=== PATIENT | male | born 2000 | race African-American/Black ===

== ENCOUNTER 2023-04-25 21:46 | Emergency (ER) | payer OTHER, SELFPAY ==
--- OUTSIDE RECORDS SUMMARY | 2023-04-25 21:56 | XMS REPORT | Continuity of Care Document ---
Author Name Unknown Address [address] [place] [address] [facility] thconnect Address 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 Role Phone Anel Moreno PA-C Primary Care Physician + GHISLAINE LEAL Attending Clinician Unavailable Ghislaine Nazario Attending Clinician [phone] Doctor Unassigned, Mackey Attending Clinician U juanjose Valdes PT, Trisha De La Torre Attending Clinician Unavail able Monse Fleming MD Attending Clinician [phone] MONSE FLEMING Attending Clinician UnavailSHAYY Finch Attending Clinician Unavail able Shayy Salmeron Attending Clinician + [phone] Anel Moreno PA-C Attending Clinician [phone] AMY MOSER Attending Clinician Unavailable Amy French Attending Clinician [phone] ANEL MORENO Attending Clinician Unavailab Anel Copeland Attending Clinician [phone] CARINE TRONCOSO Attending Clinician Unavailable Carine Troncoso MD Attending Clinician LISET GERARDO Attending Clinician Unavailable ITZ GOMEZ Attending Clinician UnavailCARINE Skinner Admitting Clinician Unavailable Payers Payer Name Policy Type Policy Number Effective Date Expirati on Date Source [facility] [id number] 2019 00:00:00 [facility] [id number] 2021 00:00:00 COMMERCIAL NON-CONTRACT GENERIC PENDING 2021 00:00:00 [employer] MEDICAID [id number] 2019 00:00:00 [facility] [id number] 2017 00:00:00 Problems Condition Name Condition Details Condition Category Status Onset Date Resolution Date Last Treatment Date Treating Clinician Comments Source Closed fracture dislocatio n of left ankle with routine healing Closed fracture dislocatio n of left ankle with routine healing Disease Active - 00:00: 00 [facility] Weakness of left lower extremity Weakness of left lower extremity Disease Active - 00:00: 00 [facility] Acute left ankle pain Acute left ankle pain Disease Active 3- 00:00: 00 [facility] Weakness of left lower extremity Weakness of left lower extremity Disease Active - 00:00: 00 [facility] No known active problems No known active problems Disease [facility] Allergies, Adverse Reactions, Alerts Allergy Name Allergy Type Status Severity Reaction(s) Onset Date Inactive Date Treating Clinician Comments Source NO KNOWN ALLERGIE S Drug Class Active [facility] Social History Social Habit Start Date Stop Date Quantity Comments Source Exposure to SARS-CoV-2 (event) 2022-09-09 00:00:00 2022-09-19 07:45:00 Not sure [facility] Alcohol intake 2022-09-19 00:00:00 2022-09-19 00:00:00 Lifetime non-drinker (finding) [facility] Tobacco use and exposure 2019-02-24 00:00:00 2019-02-24 00:00:00 Smokeless tobacco non-user [facility] Sex Assigned At 2002 00:00:00 2000 00:00:00 [facility] Smoking Status Start Date Stop Date Source Never smoked tobacco [facility] Medications Ordered Medication Name Filled Medication Name Start Date Stop Date Current Medication? Ordering Clinician Indication Dosage Frequency Signature (SIG) Comments Components Source cefdinir 250 mg/5 mL suspension 2020-05 00:00: 00 Yes [id number] Give 12 ml po QD for 10 days [facility] prednisoLON E 15 mg/5 mL solution 2020-05 00:00: 00 Yes [id number] Give 5 ml po BID for 5 days [facility] cefdinir 250 mg/5 mL suspension 2020-05 00:00: 00 Yes [id number] Give 12 ml po QD for 10 days [facility] prednisoLON E 15 mg/5 mL solution 2020-05 00:00: 00 Yes [id number] Give 5 ml po BID for 5 days [facility] cefdinir 250 mg/5 mL suspension 2020-05 00:00: 00 Yes [id number] Give 12 ml po QD for 10 days [facility] prednisoLON E 15 mg/5 mL solution 2020-05 00:00: 00 Yes [id number] Give 5 ml po BID for 5 days [facility] cefdinir 250 mg/5 mL suspension 2020-05 00:00: 00 Yes [id number] Give 12 ml po QD for 10 days [facility] prednisoLON E 15 mg/5 mL solution 2020-05 00:00: 00 Yes [id number] Give 5 ml po BID for 5 days [facility] cefdinir 250 mg/5 mL suspension 2020-05 00:00: 00 Yes [id number] Give 12 ml po QD for 10 days [facility] prednisoLON E 15 mg/5 mL solution 2020-05 00:00: 00 Yes [id number] Give 5 ml po BID for 5 days [facility] cefdinir 250 mg/5 mL suspension 2020-05 00:00: 09-19 00:00 :00 No [id number] Give 12 ml po QD for 10 days [facility] prednisoLON E 15 mg/5 mL solution 2020-05 00:00: 00 09-19 00:00 :00 No [id number] Give 5 ml po BID for 5 days [facility] cefdinir 250 mg/5 mL suspension 2020-05 00:00: 00 09-19 00:00 :00 No [id number] Give 12 ml po QD for 10 days [facility] prednisoLON E 15 mg/5 mL solution 2020-05 00:00: 00 09-19 00:00 :00 No [id number] Give 5 ml po BID for 5 days [facility] mometasone 50 mcg/actuati on nasal spray 2020-05 00:00: 00 Yes [id number] INSTILL 2 SPRAYS IN EACH NOSTRIL EVERY MORNING AND EVERY EVENING [facility] mometasone 50 mcg/actuati on nasal spray 2020-05 00:00: 00 Yes [id number] INSTILL 2 SPRAYS IN EACH NOSTRIL EVERY MORNING AND EVERY EVENING [facility] mometasone 50 mcg/actuati on nasal spray 2020-05 00:00: 00 Yes [id number] INSTILL 2 SPRAYS IN EACH NOSTRIL EVERY MORNING AND EVERY EVENING [facility] mometasone 50 mcg/actuati on nasal spray 2020-05 00:00: 00 Yes [id number] INSTILL 2 SPRAYS IN EACH NOSTRIL EVERY MORNING AND EVERY EVENING [facility] mometasone 50 mcg/actuati on nasal spray 2020-05 00:00: 00 Yes [id number] INSTILL 2 SPRAYS IN EACH NOSTRIL EVERY MORNING AND EVERY EVENING [facility] mometasone 50 mcg/actuati on nasal spray 2020-05 00:00: 00 09-19 00:00 :00 No [id number] INSTILL 2 SPRAYS IN EACH NOSTRIL EVERY MORNING AND EVERY EVENING [facility] mometasone 50 mcg/actuati on nasal spray 2020-05 00:00: 00 09-19 00:00 :00 No [id number] INSTILL 2 SPRAYS IN EACH NOSTRIL EVERY MORNING AND EVERY EVENING [facility]/5 mL solution 01-30 00:00: 00 Yes [id number] Take 5 ml to 10 ml po qhs [facility] hydrOXYzine 10 mg/5 mL solution 01-30 00:00: 00 Yes [id number] Take 5 ml to 10 ml po qhs [facility] hydrOXYzine 10 mg/5 mL solution 01-30 00:00: 00 Yes [id number] Take 5 ml to 10 ml po qhs [facility] 10 mg/5 mL solution 01-30 00:00: 00 Yes [id number] Take 5 ml to 10 ml po qhs [facility] hydrOXYzine 10 mg/5 mL solution 01-30 00:00: 00 Yes [id number] Take 5 ml to 10 ml po qhs [facility] hydrOXYzine 10 mg/5 mL solution 01-30 00:00: 00 09-19 00:00 :00 No [id number] Take 5 ml to 10 ml po qhs [facility] 10 mg/5 mL solution 01-30 00:00: 00 09-19 00:00 :00 No [id number] Take 5 ml to 10 ml po qhs [facility] Vital Signs Vital Name Observation Time Observation Value Comments S ource Systolic blood pressure 2022-09-19 13:29:00 128 mm[Hg] [facility] Diastolic blood pressure 2022-09-19 13:29:00 78 mm[Hg] [place] [facility] Heart rate 2022-09-19 13:29:00 68 /min [facility] Body height 2022-09-19 13:21:00 177.8 cm [facility] Body weight 2022-09-19 13:21:00 87.771 kg [facility] BMI 2022-09-19 13:21:00 27.76 kg/m2 [facility] Oxygen saturation in Arterial blood by Pulse oximetry 2022-09-19 13:21:00 98 /min [facility] Procedures Procedure Date / Time Performed Performing Clinician Source CONSENT/REFUSAL FOR DIAGNOSIS AND TREATMENT 2022-09-19 12:46:11 Doctor Unassigned, Mackey [facility] / CERTIFICATE 2021-07-14 06:01:00 Doctor Unassigned, Mackey [facility] Encounters Start Date/Time End Date/Time Encounter Type Admission Type Attending Clinicians Care Facility Care Department Encounter ID Source 2021-03-18 12:00:54 Emergency [facility] [id number] [facility] 2021-03-17 20:09:05 Emergency [facility] [id number] [facility] 2022-09-19 08:00:00 2022-09-19 08:44:12 Outpatient R GHISLAINE LEAL [facility] [id number] [facility] 2022-09-19 08:00:00 2022-09-19 08:44:12 Office Visit Ghislaine Leal [facility] 1.840.114 350.1.13.10 4.2.7.2.686 [id number] [facility] 2022-09-19 00:00:00 2022-09-19 00:00:00 Orders Only Doctor Unassigned, Mackey [facility] 1.840.114 350.1.13.10 4.2.7.2.686 [id number] [facility] 2021-07-19 14:30:00 2021-07-19 15:28:39 Ancillary Visit Trisha Valdes [facility] 1..840.114 350.1.13.10 4.2.7.2.686 [id number] [facility] 2021-07-19 14:30:00 2021-07-19 15:28:39 Outpatient R MONSE FLEMING [facility] [id number] [facility] 2021-07-14 00:00:00 2021-07-14 00:00:00 Orders Only Doctor Unassigned, Mackey [facility] 1.84.114 350.1.13.10 4.2.7.2.686 [id number] [facility] 2021-06-01 00:00:00 2021-06-01 00:00:00 Telephone Monse Fleming [facility] 1..114 350.1.13.10 4.2.7.2.686 [id number] [facility] 2021-05-23 14:20:00 2021-05-23 14:40:31 Outpatient R [facility] [id number] [facility] 2021-05-23 14:20:00 2021-05-23 14:40:31 Office Visit [facility] 1.2114 350.1.13.10 4.2.7.2.686 [id number] [facility] 2021-05-23 14:20:00 2021-05-23 14:40:31 Outpatient R [facility] [id number] [facility] 2021-05-23 14:20:00 2021-05-23 14:40:31 Outpatient R [facility] [id number] [facility] 2021-05-23 00:00:00 2021-05-23 00:00:00 Letter (Out) [facility] 1.84.114 350.1.13.10 4.2.7.2.686 [id number] [facility] 2021-05-17 00:00:00 2021-05-17 00:00:00 Telephone Anel Moreno [facility] 1.2.840.114 350.1.13.10 4.2.7.2.686 [id number] [facility] 2021-04-28 08:15:00 2021-04-28 23:59:00 Outpatient Janie MOSER [facility] [id number] [facility] 2021-04-28 08:15:00 2021-04-28 23:59:00 Hospital Encounter [facility] 1.2.840.114 350.1.13.10 4.2.7.2.686 [id number] [facility] 2021-04-28 08:00:00 2021-04-28 09:18:03 Outpatient AMY SUMMERS [facility] [id number] [facility] 2021-04-28 07:46:08 2021-04-28 09:18:03 [facility] 1.2.840.114 350.1.13.10 4.2.7.2.686 [id number] [facility] 2021-04-28 08:00:00 2021-04-28 08:00:00 Outpatient AMY SUMMERS [facility] [id number] [facility] 2021-04-28 08:00:00 2021-04-28 08:00:00 Outpatient Janie MOSER [facility] [id number] [facility] 2021-04-28 08:00:00 2021-04-28 08:00:00 Outpatient Janie MOSER [facility] [id number] [facility] 2021-04-28 00:00:00 2021-04-28 00:00:00 Telephone T[facility] 1.2840.114 350.1.13.10 4.2.7.2.686 [id number] [facility] 2021-04-28 00:00:00 2021-04-28 00:00:00 Telephone Amy Moser [facility] 1.2840.114 350.1.13.10 4.2.7.2.686 [id number] [facility] 2021-04-21 10:10:00 2021-04-21 10:31:00 Outpatient R ANEL MORENO [facility] [id number] [facility] 2021-04-21 10:03:24 2021-04-21 10:31:00 Office Visit Anel Moreno [facility] 1.2.840.114 350.1.13.10 4.2.7.2.686 [id number] [facility] 2021-04-21 00:00:00 2021-04-21 00:00:00 Letter (Out) Anel Moreno [facility] 1.2.840.114 350.1.13.10 4.2.7.2.686 [id number] [facility] 2021-04-20 00:00:00 2021-04-20 00:00:00 Telephone Anel Moreno [facility] 1.2.840.114 350.1.13.10 4.2.7.2.686 [id number] [facility] 2021-04-18 00:00:00 2021-04-18 00:00:00 Letter (Out) Anel Moreno [facility] 1.2.840.114 350.1.13.10 4.2.7.2.686 [id number] [facility] 2021-04-17 08:10:00 2021-04-17 08:27:50 Outpatient R ANEL MORENO [facility] [id number] [facility] 2021-04-17 07:58:31 2021-04-17 08:27:50 Office Visit Anel Moreno [facility] 1.2.840.114 350.1.13.10 4.2.7.2.686 [id number] [facility] 2021-04-17 08:10:00 2021-04-17 08:10:00 Outpatient R ANEL MORENO [facility] [id number] [facility] 2021-04-17 00:00:00 2021-04-17 00:00:00 Letter (Out) Anel Moreno [facility] 1.2.840.114 350.1.13.10 4.2.7.2.686 [id number] [facility] 2021-04-07 00:00:00 2021-04-07 00:00:00 Telephone Anel Wei [facility] 1.2.840.114 350.1.13.10 4.2.7.2.686 [id number] [facility] 2021-04-06 00:00:00 2021-04-06 00:00:00 Telephone Anel Moreno [facility] 1.2.840.114 350.1.13.10 4.2.7.2.686 [id number] [facility] 2021-04-05 00:00:00 2021-04-05 00:00:00 Telephone Anel Moreno [facility] 1.2.840.114 350.1.13.10 4.2.7.2.686 [id number] [facility] 2021-04-03 14:35:00 2021-04-03 23:59:00 [facility] 1.284.114 350.1.13.10 4.2.7.2.686 [id number] [facility] 2021-04-03 14:45:00 2021-04-03 15:53:36 Outpatient R MONSE FLEMING [facility] [id number] [facility] 2021-04-03 14:45:00 2021-04-03 15:53:36 Outpatient R MONSE FLEMING [facility] [id number] [facility] 2021-04-03 14:24:47 2021-04-03 15:53:36 Office Visit Monse Fleming [facility] 1.284.114 350.1.13.10 4.2.7.2.686 [id number] [facility] 2021-03-31 00:00:00 2021-03-31 00:00:[address] [facility] 1.284.114 350.1.13.10 4.2.7.2.686 [id number] [facility] 2021-03-31 00:00:00 2021-03-31 00:00:00 Telephone Anel Moreno [facility] 1.2.114 350.1.13.10 4.2.7.2.686 [id number] [facility] 2021-03-28 00:00:00 2021-03-28 00:00:00 Telephone Anel Moreno [facility] 1.2840.114 350.1.13.10 4.2.7.2.686 [id number] [facility] 2021-03-27 15:40:00 2021-03-27 23:59:00 Outpatient R AMY MOSER [facility] [id number] [facility] 2021-03-27 15:40:00 2021-03-27 23:59:00 Hospital Encounter Amy Moser [facility] 1.2.840.114 350.1.13.10 4.2.7.2.686 [id number] [facility] 2021-03-27 16:00:00 2021-03-27 16:32:40 Outpatient R LONNIE MONSE [facility] [id number] [facility] 2021-03-27 16:00:00 2021-03-27 16:00:00 Outpatient R LONNIE MONSE [facility] [id number] [facility] 2021-03-27 16:00:00 2021-03-27 16:00:00 Outpatient R MONSE FLEMING [facility] [id number] [facility] 2021-03-27 15:32:08 2021-03-27 15:47:08 Office Visit Amy Moser [facility] 1.2.840.114 350.1.13.10 4.2.7.2.686 [id number] [facility] 2021-03-27 00:00:00 2021-03-27 00:00:00 Letter (Out) Monse Fleming Sigrid [facility] 1.2.840.114 350.1.13.10 4.2.7.2.686 [id number] [facility] 2021-03-22 15:30:00 2021-03-22 15:30:00 Outpatient R MONSE FLEMING [facility] [id number] [facility] 2021-03-20 15:33:20 2021-03-20 23:59:00 Outpatient R AMY MOSER [facility] [id number] [facility] 2021-03-20 15:33:20 2021-03-20 23:59:00 Hospital Encounter Amy Moser [facility] 1.2.840.114 350.1.13.10 4.2.7.2.686 [id number] [facility] 2021-03-20 15:15:00 2021-03-20 16:33:58 Outpatient R MONSE FLEMING [facility] [id number] [facility] 2021-03-20 15:16:59 2021-03-20 15:31:59 Office Visit Monse Fleming [facility] 1..840.114 350.1.13.10 4.2.7.2.686 [id number] [facility] 2021-03-20 15:15:00 2021-03-20 15:15:00 Outpatient R MONSE FLEMING [facility] [id number] [facility] 2021-03-20 00:00:00 2021-03-20 00:00:00 Telephone Monse Fleming [facility] 1..840.114 350.1.13.10 4.2.7.2.686 [id number] [facility] 2021-03-17 20:50:00 2021-03-17 23:25:00 Emergency X KARYNA CARINE [facility] [id number] [facility] 2021-03-17 20:50:00 2021-03-17 23:25:00 Emergency Karyna Ryancourtney Altam[facility]ano [facility] 1.840.114 350.1.13.10 4.2.7.2.686 [id number] [facility] 2021-03-17 20:50:00 2021-03-17 23:25:00 Emergency X CARINE TRONCOSO [facility] [id number] [facility] 2021-03-17 00:00:00 2021-03-17 00:00:00 Orders Only Doctor Unassigned, Mackey [facility] 1.2.840.114 350.1.13.10 4.2.7.2.686 [id number] [facility] 2021-03-01 15:40:00 2021-03-01 15:40:00 Outpatient R SHAYY WU [facility] [id number] [facility] 2021-03-01 14:30:00 2021-03-01 14:43:20 Outpatient R ANEL MORENO [facility] [id number] [facility] 2021-03-01 14:25:46 2021-03-01 14:43:20 [facility] 1.20.114 350.1.13.10 4.2.7.2.686 [id number] [facility] 2021-03-01 14:30:00 2021-03-01 14:30:00 Outpatient R ANEL MORENO [facility] [id number] [facility] 2021-03-01 00:00:00 2021-03-01 00:00:00 Telephone [facility] 1.20.114 350.1.13.10 4.2.7.2.686 [id number] [facility] 2021-03-01 00:00:00 2021-03-01 00:00:00 Letter (Out) [facility] 1.2840.114 350.1.13.10 4.2.7.2.686 [id number] [facility] 2021-01-30 07:31:31 2021-01-30 08:40:02 Office Visit [facility] 1.2.840.114 350.1.13.10 4.2.7.2.686 [id number] [facility] 2021-01-30 07:30:00 2021-01-30 08:40:02 Outpatient ANEL DAVISON [facility] [id number] [facility] 2021-01-30 07:30:00 2021-01-30 07:30:00 Outpatient ANEL DAVISON [facility] [id number] [facility] 2021-01-09 07:50:00 2021-01-09 07:50:00 Outpatient ANEL DAVISON [facility] [id number] [facility] 2021-01-09 07:50:00 2021-01-09 07:50:00 Outpatient ANEL DAVISON [facility] [id number] [facility] 2021-01-02 07:50:00 2021-01-02 08:15:37 Outpatient ANEL DAVISON [facility] [id number] [facility] 2021-01-02 07:50:00 2021-01-02 08:15:37 Outpatient ANEL DAVISON [facility] [id number] [facility] 2021-01-02 07:50:00 2021-01-02 07:50:00 Outpatient ANEL DAVISON [facility] [id number] [facility] 2020-12-30 12:50:00 2020-12-30 12:50:00 Outpatient ANEL DAVISON [facility] [id number] [facility] 2020-12-16 07:50:00 2020-12-16 07:50:00 Outpatient ANEL DAVISON [facility] [id number] [facility] 2020-08-26 15:10:00 2020-08-26 15:43:24 Outpatient ANEL DAVISON [facility] [id number] [facility] 2020-08-26 15:10:00 2020-08-26 15:10:00 Outpatient ANEL DAVISON [facility] [id number] [facility] 2020-07-12 13:50:00 2020-07-12 14:54:55 Outpatient ANEL DAVISON [facility] [id number] [facility] 2020-07-12 13:50:00 2020-07-12 13:50:00 Outpatient ANEL DAVISON [facility] [id number] [facility] 2020-06-28 13:30:00 2020-06-28 14:14:36 Outpatient ANEL DAVISON [facility] [id number] [facility] 2020-06-28 13:30:00 2020-06-28 13:30:00 Outpatient ANEL DAVISON [facility] [id number] [facility] 2020 18:35:00 2020 20:26:00 Emergency X LISET GERARDO [facility] [id number] [facility] 2020-01-20 15:30:25 2020-01-20 23:59:00 Outpatient AMY MOSER [facility] [id number] [facility] 2020-01-20 15:00:00 2020-01-20 15:00:00 Outpatient R AMY MOSER [facility] [id number] [facility] 2020-01-11 16:20:00 2020-01-11 16:20:00 Outpatient ANEL DAVISON [facility] [id number] [facility] 2019-12-23 13:20:00 2019-12-23 13:20:00 Outpatient ANEL DAVISON [facility] [id number] [facility] 2019-12-23 13:10:00 2019-12-23 13:10:00 Outpatient ANEL DAVISON [facility] [id number] [facility] 2019-12-04 09:20:00 2019-12-04 09:20:00 Outpatient ANEL DAVISON [facility] [id number] [facility] 2019-12-02 15:40:00 2019-12-02 15:40:00 Outpatient ANEL DAVISON [facility] [id number] [facility] 2019-12-01 15:20:00 2019-12-01 15:20:00 Outpatient R [facility] [id number] [facility] 2019-05-29 09:25:03 2019-05-29 23:59:00 Outpatient MONSE FLEMING [facility] [id number] [facility] 2019-05-29 09:25:03 2019-05-29 23:59:00 Outpatient MONSE FLEMIGN [facility] [id number] [facility] 2019-04-06 17:57:34 2019-04-06 17:57:34 Outpatient R ITZ GOMEZ [facility] [id number] [facility] 2019-01-05 20:14:55 2019-01-05 20:14:55 Outpatient R CARINE TRONCOSO [facility] [id number] [facility]
[2023-04-25] MEDS ORDERED: AZITHROMYCIN 250 MG TAB ONE (23:16)
--- NOTE | 2023-04-25 23:40 | ER ---
Nurse's Notes [facility] Name: Lakhwinder Flynn Jr Age: 22 yrs Sex: Male : 2000 Arrival Date: 04/25/2023 Time: 21:46 Bed DIS4 Private MD: Diagnosis: Acute upper respiratory infection, unspecified;Cough Presentation: 04/25 21:59 Chief complaint: Patient states: flu like symptoms for approx 5 days. Coronavirus as6 screen: At this time, the client does not indicate any symptoms associated with coronavirus-19. Ebola Screen: No symptoms or risks identified at this time. Initial Sepsis Screen: Does the patient meet any 2 criteria? No. Patient's initial sepsis screen is negative. Does the patient have a suspected source of infection? No. Patient's initial sepsis screen is negative. Risk Assessment: Do you want to hurt yourself or someone else? Patient reports no desire to harm self or others. Onset of symptoms was April 21, 2023. 21:59 Acuity: ETHAN 4 as6 21:59 Method Of Arrival: Ambulatory as6 Triage Assessment: 22:11 General: Appears in no apparent distress. Behavior is calm, cooperative, Reports as6 feeling ill for fatigue for. Pain: Denies pain. EENT: No deficits noted. No signs and/or symptoms were reported regarding the EENT system. Neuro: Level of Consciousness is awake, alert, obeys commands, Oriented to person, place, time, situation, Reports dizziness. Cardiovascular: Capillary refill < 3 seconds Patient's skin is warm and dry. Respiratory: Reports cough that is Respiratory effort is even, unlabored, Respiratory pattern is regular, symmetrical. GI: No deficits noted. No signs and/or symptoms were reported involving the gastrointestinal system. : No deficits noted. No signs and/or symptoms were reported regarding the genitourinary system. Derm: Skin is intact, is healthy with good turgor. Musculoskeletal: Circulation, motion, and sensation intact. Historical: - Allergies: 21:58 No Known Allergies; as6 - PMHx: 21:58 None; as6 - PSHx: 21:58 None; as6 - Immunization history:: Adult Immunizations up to date. - Social history:: Smoking status: Patient denies any tobacco usage or history of. - Family history:: not pertinent. Screenin:12 [facility] ED Fall Risk Assessment (Adult) Score/Fall Risk Level 0 - 2 = Low Risk. Abuse as6 screen: Denies threats or abuse. Denies injuries from another. Nutritional screening: No deficits noted. Tuberculosis screening: No symptoms or risk factors identified. Assessment: 22:11 General: pt refused COVID swab . as6 22:12 General: see triage assessment . as6 Vital Signs: 21:58 BP 143 / 85; Pulse 84; Resp 18 S; Temp 97.5(O); Pulse Ox 100% on R/A; Weight 86.18 kg as6 (R); Height 5 ft. 10 in. (R); Pain 0/10; 23:14 BP 136 / 68 Supine; Pulse 70; Resp 14; Pulse Ox 97% on R/A; me1 23:14 BP 137 / 89 Sitting; Pulse 70; Resp 16; Pulse Ox 98% on R/A; me1 23:14 BP 137 / 86 Standing; Pulse 77; Resp 16; Pulse Ox 100% ; me1 21:58 Body Mass Index 27.26 (86.18 kg, 177.8 cm) as6 21:58 Pain Scale: Adult as6 ED Course: 21:52 Patient arrived in ED. gm2 21:58 Arm band placed on. as6 21:59 Triage completed. as6 22:07 Surya Cummings MD is Attending Physician. gian 22:11 Julio César Echavarria, RN is Primary Nurse. as6 22:12 Adult w/ patient. as6 23:24 No provider procedures requiring assistance completed. Patient did not have IV access me1 during this emergency room visit. 08 00:12 Provided Education on: POC. Verbalized understanding. . me1 Administered Medications: 1207 23:05 Drug: AZITHromycin PO 500 mg PO once Route: PO; me1 23:22 Follow up: Response: No adverse reaction me1 23:39 Drug: predniSONE PO 60 mg PO once Route: PO; me1 23:39 Follow up: Response: No adverse reaction me1 Medication: 22:12 VIS not applicable for this client. as6 Outcome: 23:39 Discharge ordered by . gian 04/26 00:12 Discharged to home ambulatory, with family, me Condition: stable Discharge instructions given to patient, family, Instructed on discharge instructions, follow up and referral plans. medication usage, Demonstrated understanding of instructions, follow-up care, medications, Prescriptions given X 4, 00:12 Patient left the ED. me1 Signatures: Surya Cummings MD MD cha Slawson, Ashby RN RN as6 Jackeline Morris RN RN me1 Norma Ivey 2
--- NOTE | 2023-04-25 23:40 | EDPHYS ---
Physician Documentation [facility] Name: Lakhwinder Flynn Jr Age: 22 yrs Sex: Male : 2000 Arrival Date: 04/25/2023 Time: 21:46 Bed DIS4 Private MD: ED Physician Surya Cummings HPI: 04/25 23:35 This 22 yrs old Black Male presents to ER via Ambulatory with complaints of Cough, gian Congestion, Fever, Dizziness. 23:35 The patient or guardian reports airway noise, cough, described as mild. Onset: The gian symptoms/episode began/occurred 5 day(s) ago. Severity of symptoms: At their worst the symptoms were moderate. Modifying factors: The symptoms are alleviated by nothing, the symptoms are aggravated by nothing. The patient has not experienced similar symptoms in the past. Historical: - Allergies: 21:58 No Known Allergies; as6 - PMHx: 21:58 None; as6 - PSHx: 21:58 None; as6 - Immunization history:: Adult Immunizations up to date. - Social history:: Smoking status: Patient denies any tobacco usage or history of. - Family history:: not pertinent. ROS: 23:35 Constitutional: Negative for fever, chills, and weight loss, Eyes: Negative for injury, gian pain, redness, and discharge, Neck: Negative for injury, pain, and swelling, Cardiovascular: Negative for chest pain, palpitations, and edema, Respiratory: Negative for shortness of breath, cough, wheezing, and pleuritic chest pain, Abdomen/GI: Negative for abdominal pain, nausea, vomiting, diarrhea, and constipation, Back: Negative for injury and pain, : Negative for injury, bleeding, discharge, and swelling, MS/Extremity: Negative for injury and deformity, Skin: Negative for injury, rash, and discoloration, Neuro: Negative for headache, weakness, numbness, tingling, and seizure, Psych: Negative for depression, anxiety, suicide ideation, homicidal ideation, and hallucinations, Allergy/Immunology: Negative for hives, rash, and allergies, Endocrine: Negative for neck swelling, polydipsia, polyuria, polyphagia, and marked weight changes, Hematologic/Lymphatic: Negative for swollen nodes, abnormal bleeding, and unusual bruising, 23:35 ENT: Positive for sore throat, Exam: 23:35 Constitutional: This is a well developed, well nourished patient who is awake, alert, gian and in no acute distress. Head/Face: Normocephalic, atraumatic. Eyes: Pupils equal round and reactive to light, extra-ocular motions intact. Lids and lashes normal. Conjunctiva and sclera are non-icteric and not injected. Cornea within normal limits. Periorbital areas with no swelling, redness, or edema. Neck: Trachea midline, no thyromegaly or masses palpated, and no cervical lymphadenopathy. Supple, full range of motion without nuchal rigidity, or vertebral point tenderness. No Meningismus. Chest/axilla: Normal chest wall appearance and motion. Nontender with no deformity. No lesions are appreciated. Cardiovascular: Regular rate and rhythm with a normal S1 and S2. No gallops, murmurs, or rubs. Normal PMI, no JVD. No pulse deficits. Respiratory: Lungs have equal breath sounds bilaterally, clear to auscultation and percussion. No rales, rhonchi or wheezes noted. No increased work of breathing, no retractions or nasal flaring. Abdomen/GI: Soft, non-tender, with normal bowel sounds. No distension or tympany. No guarding or rebound. No evidence of tenderness throughout. Back: No spinal tenderness. No costovertebral tenderness. Full range of motion. Male : Normal genitalia with no discharge or lesions. Skin: Warm, dry with normal turgor. Normal color with no rashes, no lesions, and no evidence of cellulitis. MS/ Extremity: Pulses equal, no cyanosis. Neurovascular intact. Full, normal range of motion. Neuro: Awake and alert, GCS 15, oriented to person, place, time, and situation. Cranial nerves II-XII grossly intact. Motor strength 5/5 in all extremities. Sensory grossly intact. Cerebellar exam normal. Normal gait. Psych: Awake, alert, with orientation to person, place and time. Behavior, mood, and affect are within normal limits. 23:35 ENT: Posterior pharynx: Airway: normal, no evidence of obstruction, Tonsils: are normal in appearance, with erythema, Uvula: normal, midline, non-edematous, no erythema, swelling, is not appreciated, Vital Signs: 21:58 BP 143 / 85; Pulse 84; Resp 18 S; Temp 97.5(O); Pulse Ox 100% on R/A; Weight 86.18 kg as6 (R); Height 5 ft. 10 in. (R); Pain 0/10; 23:14 BP 136 / 68 Supine; Pulse 70; Resp 14; Pulse Ox 97% on R/A; me1 23:14 BP 137 / 89 Sitting; Pulse 70; Resp 16; Pulse Ox 98% on R/A; me1 23:14 BP 137 / 86 Standing; Pulse 77; Resp 16; Pulse Ox 100% ; me1 21:58 Body Mass Index 27.26 (86.18 kg, 177.8 cm) as6 21:58 Pain Scale: Adult as6 MDM: 22:07 Patient medically screened. gian 23:37 Differential Diagnosis: Obstructed Airway Bronchitis Influenza Upper Respiratory gian Infection Sinusitis Pharyngitis Otitis Media. Data reviewed: vital signs, nurses notes, lab test result(s), Flu:. Consideration of Admission/Observation Escalation of care including admission/observation considered. I considered the following discharge prescriptions or medication management in the emergency department Medications were administered in the Emergency Department. See MAR. Test considered but Not performed: Labs: NO CBC , NO COMP. Care significantly affected by the following chronic conditions: NONE. 04/25 22:00 Order name: Influenza Screen (a \T\ B); Complete Time: 23:19 as6 04/25 22:00 Order name: Strep; Complete Time: 22:52 as6 04/25 22:39 Order name: Throat Culture EDMS Administered Medications: 23:05 Drug: AZITHromycin PO 500 mg PO once Route: PO; me1 23:22 Follow up: Response: No adverse reaction me1 23:39 Drug: predniSONE PO 60 mg PO once Route: PO; me1 23:39 Follow up: Response: No adverse reaction me1 Disposition Summary: 04/25/23 23:39 Discharge Ordered Notes: Location: Home gian Problem: new gian Symptoms: have improved gian Condition: Stable gian Diagnosis - Acute upper respiratory infection, unspecified gian - Cough gian Followup: gian - With: Private Physician - When: 2 - 3 days - Reason: Recheck today's complaints, Continuance of care, Re-evaluation by your physician Discharge Instructions: - Discharge Summary Sheet gian - Upper Respiratory Infection, Adult gian - Cool Mist Vaporizer gian - Upper Respiratory Infection, Adult, [id number] gian - Cough, Adult, [id number] [facility] - Cough, Adult [facility] Forms: - Medication Reconciliation Form [facility] - Thank You Letter [facility] - Antibiotic Education [facility] - Prescription Opioid Use [facility] - Patient Portal Instructions [facility] - Leadership Thank You Letter [facility] Prescriptions: - Jazmyne-D 12 Hour 60-120 mg Oral Tablet Sustained Release 12 hr - take 1 tablet ORAL route every 12 hours As needed; 20 tablet; Refills: 0, [facility] Product Selection Permitted - Tessalon Perles 100 mg Oral capsule - take 2 capsule ORAL route every 8 hours As needed; 30 capsule; Refills: 0, [facility] Product Selection Permitted - Zithromax Z-Jani 250 mg Oral Tablet - take 1 tablet ORAL route as directed for 5 days Day 1 - take two (2) tablets gian one time. Day 2, 3, 4 , 5 take one (1) tablet once daily.; 6 tablet; Refills: 0, Product Selection Permitted - Medrol (Jani) 4 mg Oral Tablets, Dose Pack - take 1 tablet ORAL route as directed - follow package instructions; 1 packet; [facility] Refills: 0, Product Selection Permitted Signatures: Dispatcher [employer] Surya Méndez MD MD cha Slawson, Ashby, RN RN as6 Jackeline Morris, RN RN me1 Corrections: (The following items were deleted from the chart) 22:25 22:09 Chest Pa And Lat (2 Views)+[email or web address] ordered. [facility] EDMS
[2023-04-25] MEDS ORDERED: predniSONE 20 MG TAB ONE (23:52)
[2023-04-26 00:23] VITALS: TEMP 97.5; O2SAT 100
[2023-04-26 00:26] VITALS: BP 137/86
== END 2023-04-26 00:12 | disposition home or self-care (01) ==
LOC: ER 21:46
DX: J06.9 Acute upper respiratory infection, unspecified (principal)
CPT/HCPCS: 87070; 87081; 87804; 99283; J7512